=== PATIENT | male | born 1995 | race African-American/Black ===

== ENCOUNTER 2020-06-16 14:13 | Emergency (ER) | payer BC, SELFPAY ==
--- NOTE | ~2020-06-16 | XR_ITS ---
EXAMINATION: XR foot RT min 3V DATE: 06/16/2020 14:42 INDICATION: Right foot pain, initial encounter TECHNIQUE: Dorsoplantar, lateral, and 2 oblique views of the right foot were obtained. COMPARISON: None. FINDINGS: There is an acute, traumatic, closed, oblique fracture at the lateral base of the fifth met atarsal. Soft tissue swelling surrounds the fracture. No additional acute osseous abnormality is iden tified. IMPRESSION: 1. Acute fifth metatarsal base fracture. Reviewed, dictated and finalized at location A.
[2020-06-16 14:17] VITALS: BP 125/72; PULSE 101; RESP 16; TEMP 37.4; O2SAT 99
--- NOTE | 2020-06-16 14:58 | ED.LOWEXIN ---
HPI - Extremity Injury (Lower) General Chief Complaint: Extremity Injury, Lower Stated Complaint: R FOOT PAIN Time Seen by Provider: 06/16/20 14:21 Source: patient Mode of arrival: ambulatory Limitations: no limitations History of Present Illness HPI Narrative: Patient presents with discomfort to the lateral aspect of the right foot that began yesterday after playing outside. Patient states while he was moving around he did not notice the discomfort but after coming home and sitting increase. Patient states when he awoke this morning he noticed increased pain swelling erythema to the area. Patient denies any other areas of injury. Patient states that he is able to move his ankle over his toes although it is painful when he wiggles his fourth and fifth metatarsals. He also reports pain with weightbearing. Related Data Allergies Allergy/AdvReac Type Severity Reaction Status Date / Time No Known Allergies Allergy Verified 06/16/20 14:24 Review of Systems Review of Systems: Narrative: CONSTITUTIONAL: Denies fever, chills, or sweats. EYES: Denies visual changes, redness, or discharge. ENT: Denies rhinorrhea, congestion, sore throat, or otalgia. CARDIOVASCULAR: Denies chest pain, palpitations, or edema. RESPIRATORY: Denies cough or dyspnea. GASTROINTESTINAL: Denies abdominal pain, nausea, vomiting, or diarrhea. GENITOURINARY: Denies dysuria or hematuria. SKIN: Denies rash or itching. MUSCULOSKELETAL: Reports joint pain denies back pain, or myalgia. NEUROLOGIC: Denies headache, numbness, dizziness, or weakness. PSYCHIATRIC: Denies anxiety or depression. PMFSH Social History Social History Gender identity (if verbalized by the patient): Male Exam Narrative: Exam Narrative: GENERAL: Well-appearing, well-nourished, and in no acute distress. HEAD: Normocephalic, atraumatic. EYES: PERRLA and EOMI. ENT: Nares clear, no rhinorrhea or epistaxis. Mucous membranes moist. NECK: Supple. No adenopathy or masses. CHEST: Clear to auscultation. No respiratory distress. No wheezes rales or rhonchi HEART: Regular rate and rhythm. EXTREMITIES: Edema noted to the lateral aspect of right fifth digit at base of fifth metatarsal. Pain with weightbearing sensation and motor function intact to the metatarsals and ankle. SKIN: Warm, dry, no rash. NEURO: No focal deficits. Alert and oriented x3. PSYCH: Normal mood and affect. Course Vital Signs Vital signs: Vital Signs Temperature 99.4 F 06/16/20 14:17 Pulse Rate 101 H 06/16/20 14:17 Respiratory Rate 16 06/16/20 14:17 Blood Pressure 125/72 06/16/20 14:17 Pulse Oximetry 99 06/16/20 14:17 Temperature 99.4 F 06/16/20 14:17 Pulse Rate 101 H 06/16/20 14:17 Respiratory Rate 16 06/16/20 14:17 Blood Pressure 125/72 06/16/20 14:17 Pulse Oximetry 99 06/16/20 14:17 MDM - Extremity Injury (Lower) MDM Narrative Medical decision making narrative: Patient will be placed in a postop shoe and given crutches and instructions not to weight-bear on the right foot. Patient will be referred to orthopedics for a fracture at the base of the fifth metatarsal. Patient will be given a note for work that he is not to weight-bear on the right foot until cleared by it technical support specialist. Patient will be given tramadol for breakthrough pain but otherwise instructed to take Tylenol or ibuprofen. Differential Diagnosis Differential diagnosis: Likely ankle sprain and strain, puncture wound of foot and fracture of toe Imaging Data Radiologist's impression: ITS Impressions Foot X-Ray 06/16/20 14:52 IMPRESSION: 1. Acute fifth metatarsal base fracture. Discharge Plan Discharge Clinical Impression: Fracture of fifth metatarsal bone of right foot Qualifiers: Encounter type: initial encounter Fracture type: closed Fracture alignment: nondisplaced Qualified Code(s): S92.354A - Nondisplaced fracture of fifth metatarsal bone, right foot, initial encounter for closed fra
[2020-06-16 15:33] VITALS: BP 118/70; PULSE 92; RESP 16; TEMP 37.1; O2SAT 100
== END 2020-06-16 15:34 | disposition home or self-care (01) ==
PROVIDERS: Emergency Provider Emergency Medicine
DX: S92.351A Displaced fracture of fifth metatarsal bone, right foot, initial encounter for closed fracture (principal); X58.XXXA Exposure to other specified factors, initial encounter
CPT/HCPCS: 73630; 99284

== ENCOUNTER 2020-08-28 11:51 | Emergency (ER) | payer BC, SELFPAY ==
--- NOTE | ~2020-08-28 | XR_ITS ---
EXAMINATION: XR chest 2V DATE: 08/28/2020 12:32 INDICATION: Mid chest pain. TECHNIQUE: Frontal and lateral views of the chest were obtained. COMPARISON: None. FINDINGS: The chest demonstrates clear lungs without pneumonia, pleural effusion, or pneumothorax. Th e heart size is normal. IMPRESSION: 1. No acute cardiopulmonary disease. Reviewed, dictated and finalized at location A.
--- NOTE | 2020-08-28 12:07 | ECG_ITS ---
Measurements Intervals [place] Rate: 68 P: 185 LA: 89 QRS: 76 QRSD: 129 T: 46 QT: 394 QTc: 421 Interpretive Statements SINUS RHYTHM WITH SHORT LA INTERVAL INTRAVENTRICULAR CONDUCTION DELAY BASELINE WANDER- II, AVF, V3-V6 BORDERLINE ECG Electronically Signed On 08-28-2020 12:17:22 CDT by Brigido Garcia D.O.
[2020-08-28 13:24] VITALS: BP 138/63; PULSE 67; RESP 18; TEMP 36.6; O2SAT 100
[2020-08-28 15:59] VITALS: BP 136/72; PULSE 66; RESP 15; O2SAT 100
[2020-08-28 16:00] VITALS: PULSE 66
--- NOTE | 2020-08-28 16:28 | ED.CHESTPAIN ---
HPI - Chest Pain General Chief Complaint: Chest Pain Stated Complaint: chest pain x 2 months Time Seen by Provider: 08/28/20 15:53 Source: patient Mode of arrival: ambulatory Limitations: no limitations History of Present Illness HPI narrative: Patient is a 25-year-old male who presents with intermittent right-sided chest pain that has been present for over a month comes and goes noted is an aching pain had occurrence today which is resolved presents in no distress has never been seen for this complaint Related Data Allergies Allergy/AdvReac Type Severity Reaction Status Date / Time No Known Allergies Allergy Verified 08/28/20 16:00 Review of Systems Review of Systems: All systems reviewed & are unremarkable except as noted in HPI and below PMFSH Social History Social History (Updated 08/28/20 @ 16:30 by Serge Fernandez PA-C) Smoking status: Never smoker Gender identity (if verbalized by the patient): Male Exam Narrative: Exam Narrative: GENERAL: Well-appearing, well-nourished, and in no acute distress. HEAD: Normocephalic, atraumatic. EYES: PERRLA and EOMI. ENT: Nares clear, no rhinorrhea or epistaxis. Mucous membranes moist. Oropharynx without tonsillar hypertrophy exudate or other lesions. NECK: Supple. No adenopathy or masses. CHEST: Clear to auscultation. No respiratory distress. No wheezes rales or rhonchi HEART: Regular rate and rhythm. No murmur heard. Normal peripheral pulses. ABDOMEN: Soft, nontender, nondistended EXTREMITIES: Normal range of motion. No edema. SKIN: Warm, dry, no rash. NEURO: No focal deficits. Alert and oriented x3. PSYCH: Normal mood and affect. Course Course Emergency Course: Patient in the room asymptomatic no distress no high risk changes in the EKG or chest x-ray felt appropriate for outpatient reevaluation provided with reasons to return Vital Signs Vital signs: Vital Signs Temperature 97.9 F 08/28/20 13:24 Pulse Rate 67 08/28/20 13:24 Respiratory Rate 18 08/28/20 13:24 Blood Pressure 138/63 08/28/20 13:24 Pulse Oximetry 100 08/28/20 13:24 Temperature 97.9 F 08/28/20 13:24 Pulse Rate 66 08/28/20 16:00 Respiratory Rate 15 08/28/20 15:59 Blood Pressure 136/72 08/28/20 15:59 Pulse Oximetry 100 08/28/20 15:59 MDM - Chest Pain MDM Narrative Medical decision making narrative: Patient in the room without high risk changes in the EKG or chest x-ray felt appropriate for outpatient reevaluation given the duration of the symptoms and the patient is symptom-free felt appropriate for outpatient reevaluation by primary care ECG Data EKG #1: EKG Interpretation: normal rate, sinus rhythm, non-specific ST changes, normal QRS and NL axis Discharge Plan Discharge Clinical Impression: Chest pain Patient Disposition: Home, Self-Care Condition: Stable Instructions: Antibiotic Form, Chest Pain (ED) Additional Instructions: Follow up with your primary care provider within 5-7 days. Go to ER for shortness of breath, difficulty breathing, chest pain, fever/chills, weakness, nauseau/vomitting, etc. or any other concerns. Take any prescribed medications as directed. If you do not have a drug allergy to tylenol or motrin and can tolerate it then take tylenol or motrin as needed for discomfort/pain. Prescriptions: No Action tramadol 50 mg tablet 50 mg PO Q6H PRN (Reason: pain) Qty: 14 RF: 0 Follow-up/Referrals: PHYSICIAN,SENIOR NETWORK ENGINEER [Primary Care Provider] - Ryder Snider MD [Physician] - Stand Alone Forms: Work/School Release IP
[2020-08-28 16:59] VITALS: BP 132/84; PULSE 71; RESP 18; O2SAT 98
== END 2020-08-28 17:00 | disposition home or self-care (01) ==
PROVIDERS: Emergency Provider Emergency Medicine
DX: R07.9 Chest pain, unspecified (principal); I45.9 Conduction disorder, unspecified
CPT/HCPCS: 71046; 93005; 99284

== ENCOUNTER 2020-10-01 22:41 | Emergency (ER) | payer BC, SELFPAY ==
[2020-10-01 22:44] VITALS: BP 136/75; PULSE 92; RESP 20; TEMP 36.8; O2SAT 97
--- NOTE | 2020-10-01 22:56 | ED.FALL ---
HPI - Fall General Chief Complaint: Fall Stated Complaint: HEAD LAC; FALL Time Seen by Provider: 10/01/20 22:46 Source: patient Mode of arrival: ambulatory Limitations: no limitations History of Present Illness HPI Narrative: 25-year-old male In good health He was hanging [place] lights at home and standing on a folding chair The folding chair collapsed and he fell off and struck the left side of his head on the way down He has a scalp laceration No other injuries no loss of consciousness no neurologic symptoms There was quite a bit of bleeding initially but it is stopped Related Data Allergies Allergy/AdvReac Type Severity Reaction Status Date / Time No Known Allergies Allergy Verified 08/28/20 16:00 Review of Systems Constitutional: Constitutional: Denies weakness Musculoskeletal: Musculoskeletal: Denies back pain and Denies arthralgias Neurologic: Denies dizziness, Denies syncope and Denies headache(s) Hematologic/Lymphatic: Hematologic/Lymphatic: Denies easy bleeding and Denies easy bruising PMFSH Social History Social History (Updated 08/28/20 @ 16:30 by Serge Fernandez PA-C) Smoking status: Never smoker Gender identity (if verbalized by the patient): Male Exam Const: General: no acute distress and alert Orientation/consciousness: patient oriented x3 HENMT: Head images: 1. 1 cm Other: There is a small 1 cm laceration into the subcu in the left parietal scalp and a small amount of associated swelling Thorough examination shows no other lacerations Eyes: Conjunctivae: conjunctivae normal EOM: EOMs intact bilaterally Neck: Other: Nontender Neuro: General: patient oriented x3 and moves all extremities Course Vital Signs Vital signs: Vital Signs Temperature 36.8 C 10/01/20 22:44 Pulse Rate 92 10/01/20 22:44 Respiratory Rate 20 10/01/20 22:44 Blood Pressure 136/75 10/01/20 22:44 Pulse Oximetry 97 10/01/20 22:44 Temperature 36.8 C 10/01/20 22:44 Pulse Rate 92 10/01/20 22:44 Respiratory Rate 20 10/01/20 22:44 Blood Pressure 136/75 10/01/20 22:44 Pulse Oximetry 97 10/01/20 22:44 Procedures Laceration Laceration 1: Date: 10/01/20 Time: 23:00 Site: scalp Side (If applicable): left Size (cm): 1 Description: clean Depth: simple, single layer Local Anesthetic: none ====== Skin Level ====== Skin layer closed with: dermabond ====== Subcutaneous Layer ====== ====== Muscle Layer ====== ====== Tendon Layer ====== Discharge Plan Discharge Clinical Impression: Laceration of scalp Patient Disposition: Home, Self-Care Condition: Improved Instructions: Skin Adhesive Care (ED) Prescriptions: No Action tramadol 50 mg tablet 50 mg PO Q6H PRN (Reason: pain) Qty: 14 RF: 0 Follow-up/Referrals: PHYSICIAN,RAIMANN MACHINE OPERATOR [Primary Care Provider] -
[2020-10-01] MEDS: TETANUS,DIPHTHERIA,AC PERTUSSIS ADULT (0.5 ML) BOOSTRIX IM (23:07)
== END 2020-10-01 23:13 | disposition home or self-care (01) ==
LOC: ANHED 23:10
PROVIDERS: Emergency Provider Emergency Medicine
DX: S01.01XA Laceration without foreign body of scalp, initial encounter (principal); Z23 Encounter for immunization; W07.XXXA Fall from chair, initial encounter
CPT/HCPCS: 12001; 90471; 90714; 90715; 99282